=== PATIENT | male | born 1995 | race Caucasian/White ===

== ENCOUNTER → 2024-10-15 09:12 | Outpatient (CLI) | payer SELFPAY ==
[2024-10-15 10:32] LABS: COVID-19 CEPHEID 4-PLEX PCR Negative (Negative); Influenza A - CEPHEID Flu A NEGATIVE (NEGATIVE); Influenza B - CEPHEID Flu B NEGATIVE (NEGATIVE); Respiratory Syncytial Virus Negative (Negative)
== END ==
PROVIDERS: Visit Provider Registered Nurse
DX: R05.1 Acute cough (principal)
CPT/HCPCS: 0241U

== ENCOUNTER → 2024-10-15 09:16 | Outpatient (CLI) | payer SELFPAY ==
--- NOTE | 2024-10-15 09:22 | DI.RAD.S_ITS ---
PROCEDURE: XR CHEST 2V INDICATIONS: Shortness of breath TECHNIQUE: 2 views of the chest were acquired. COMPARISON: None. FINDINGS: Surgical changes and devices: None. Lungs and pleura: Lungs are clear. Mild central peribronchial wall thickening. No pleural effusions or pneumothorax. Mediastinum: Mediastinal contours are normal. Heart size is normal. Bones and chest wall: No suspicious bony abnormalities. Soft tissues appear unremarkable. IMPRESSION: Mild central peribronchial wall thickening. Finding is nonspecific but could represent infectious bronchitis. Dictated by: Liudmila Goodman MD, PhD on 10/15/2024 at 9:39 Approved by: Liudmila Goodman MD, PhD on 10/15/2024 at 9:40
== END ==
LOC: RAD 09:19
PROVIDERS: Referring Provider Registered Nurse; Visit Provider Registered Nurse
DX: R06.02 Shortness of breath (principal)
CPT/HCPCS: 0241U; 71046